=== PATIENT | female | born 1965 | race Hispanic/Latino ===

== ENCOUNTER 2017-09-01 08:02 | Day surgery (SDC) | payer OTHER ==
[2017-09-01] MEDS ORDERED: NA CHLORIDE 0.9% 1,000 ML ONE (08:04)
[2017-09-01] MEDS ORDERED: INSULIN -REGULAR HUMAN 50 UNIT/0.5 ML ML ONE (08:32)
[2017-09-01] MEDS ORDERED: LIDOCAINE 1% MPF 5 ML VIAL ONE (08:44)
[2017-09-01] MEDS ORDERED: PROPOFOL 200 MG/20 ML VIAL IV ONE (08:44)
--- NOTE | 2017-09-01 09:28 | ENDO RPT ---
[address], [address] COLONOSCOPY PROCEDURE REPORT EXAM DATE: 09/01/2017 PATIENT NAME: Madeline Tavares MR #: [id number] BIRTHDATE: 1965 ATTENDING: Vito Levin DR STATUS: outpatient NEW MEDIA STRATEGIST: Rome Yoder and Eloina Maldonado RN INDICATIONS: The patient is a 52 yr old Female here for a colonoscopy due to colon cancer screening PROCEDURE PERFORMED: Colonoscopy with biopsy MEDICATIONS: Per Anesthesia. ESTIMATED BLOOD LOSS: None CONSENT: The patient understands the risks and benefits of the procedure and understands that these risks include, but are not limited to: sedation, allergic reaction, infection, perforation and/or bleeding. Alternative means of evaluation and treatment include, among others: physical exam, x-rays, and/or surgical intervention. The patient elects to proceed with this endoscopic procedure. DESCRIPTION OF PROCEDURE: During intra-op preparation period all mechanical medical equipment was checked for proper function. Hand hygiene and appropriate measures for infection prevention was taken. Procedure, possible complications, alternatives including, but not limited to possibility of bleeding, perforation, tear, infection, sepsis, need for surgery, need for blood transfusion, were explained to the patient. After the risks, benefits and alternatives of the procedure were thoroughly explained, Informed consent was verified, confirmed and timeout was successfully executed by the treatment team. The patient was placed in the left lateral position. A digital rectal exam was performed and revealed internal hemorrhoids. After appropriate level of anesthesia, the scope was passed. The EC-[id number] ([id number]) endoscope was introduced through the anus and advanced to the cecum, which was identified by both the appendix and ileocecal valve. The quality of the prep was fair. The instrument was then slowly withdrawn as the colon was fully examined. Scope withdrawal time was 10 minutes. COLON FINDINGS: Moderate diverticulosis was noted in the right colon and sigmoid colon. No bleeding was noted from the diverticulosis. A small patch of abnormal mucosa was found at the cecum. The mucosa was erythematous and nodular. A biopsy was performed using cold forceps. Small internal hemorrhoids were found. Retroflexed views revealed no abnormalities. The scope was then completely withdrawn from the patient and the procedure terminated. ADVERSE EVENTS: There were no complications. IMPRESSIONS: 1. Moderate diverticulosis was noted in the right colon and sigmoid colon 2. Small abnormal mucosa was found at the cecum; The mucosa was erythematous and nodular; biopsy was performed using cold forceps 3. Small internal hemorrhoids RECOMMENDATIONS: 1. avoid NSAIDS for 2 weeks 2. await biopsy results 3. follow-up: office 2 week(s) 4. low fiber / diverticular diet RECALL: Return in 10 year(s) for Colonoscopy, pending biopsy results. Vito Levin DR eSigned: Vito Levin DR 09/01/2017 9:28 AM cc: CPT CODES: ICD9 CODES: PATIENT NAME: TavaresMadeline gipson MR#: [id number]
[2017-09-01 09:52] VITALS: TEMP 96
[2017-09-01 09:57] VITALS: O2SAT 98
[2017-09-01 10:00] VITALS: BP 107/65
== END 2017-09-01 10:04 | disposition home or self-care (01) ==
LOC: OR 08:02
PROVIDERS: ATTEND Surgery
PROC: 0DBH8ZX Excision of Cecum, Via Natural or Artificial Opening Endoscopic, Diagnostic (ICD-10-PCS; principal; 2017-09-01 09:00)
DX: Z12.11 Encounter for screening for malignant neoplasm of colon (principal); K57.90 Diverticulosis of intestine, part unspecified, without perforation or abscess without bleeding; K64.8 Other hemorrhoids; I10 Essential (primary) hypertension; E03.9 Hypothyroidism, unspecified; E78.2 Mixed hyperlipidemia; M19.91 Primary osteoarthritis, unspecified site
CPT/HCPCS: 82962; 88305; J7030

== ENCOUNTER 2019-01-29 12:08 | Emergency (ER) | payer OTHER ==
[2019-01-29 13:46] LABS: Urine Blood 2+ (NEG); Urine Glucose NEGATIVE (NEG); Urine Protein TRACE (NEG); Urine Specific Gravity 1.015 (1.005-1.030); Urine pH 6.5 (5.0-7.0)
[2019-01-29 13:49] LABS: Urine Bacteria <20 /HPF (<20); Urine Culture Reflex Order REFLEXED; Urine Yeast PRESENT (NONE SEEN)
--- NOTE | 2019-01-29 14:24 | ER ---
Nurse's Notes [facility] Name: Madeline Tavares Age: 53 yrs Sex: Female : 1965 Arrival Date: 01/29/2019 Time: 12:09 Bed 7 Private MD: Chris Paula Diagnosis: Acute tonsillitis, unspecified;Headache;Candidiasis of vulva and vagina Presentation: 01/29 12:44 Presenting complaint: Patient states: subjective fever, abd pain, sore throat, headache sv started yesterday. Transition of care: patient was not received from another setting of care. Onset of symptoms was January 28, 2019. Risk Assessment: Do you want to hurt yourself or someone else? Patient reports no desire to harm self or others. Care prior to arrival: None. 12:44 Method Of Arrival: Ambulatory sv 12:44 Acuity: CARLOS ALBERTO 2 sv 13:50 Initial Sepsis Screen: Does the patient meet any 2 criteria? No. Patient's initial mg2 sepsis screen is negative. Does the patient have a suspected source of infection? No. Patient's initial sepsis screen is negative. 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 - Social history:: Smoking status: unknown. - Ebola Screening: : No symptoms or risks identified at this time. Screenin:49 Abuse screen: Denies threats or abuse. Denies injuries from another. Nutritional mg2 screening: No deficits noted. Tuberculosis screening: No symptoms or risk factors identified. Fall Risk None identified. Assessment: 13:48 General: Appears in no apparent distress. comfortable, Behavior is calm, cooperative. mg2 Pain: Complains of pain in throat. Neuro: Level of Consciousness is awake, alert, obeys commands, Oriented to person, place, time, situation. Cardiovascular: Capillary refill < 3 seconds Patient's skin is warm and dry. Respiratory: Airway is patent Respiratory effort is even, unlabored, Respiratory pattern is regular, symmetrical, Breath sounds are clear bilaterally. in mediastinum, right upper lobe, left upper lobe, right middle lobe, left lower lobe and right lower lobe. GI: No signs and/or symptoms were reported involving the gastrointestinal system. : No signs and/or symptoms were reported regarding the genitourinary system. EENT: Throat is clear Reports sore throaT. Derm: Skin is intact, is healthy with good turgor, Skin is pink, warm \T\ dry. normal. Musculoskeletal: Circulation, motion, and sensation intact. Capillary refill < 3 seconds. 14:46 Reassessment: Patient appears in no apparent distress at this time. Patient and/or mg2 family updated on plan of care and expected duration. Pain level reassessed. Patient is alert, oriented x 3, equal unlabored respirations, skin warm/dry/pink. Vital Signs: 12:46 BP 187 / 119; Pulse 119; Resp 22; Temp 99.2(O); Pulse Ox 97% ; sv 12:51 Weight 75.75 kg; Height 5 ft. 7 in. (170.18 cm); Pain 8/10; sv 13:51 BP 172 / 97; Pulse 98; Resp 18; Pulse Ox 98% on R/A; mg2 14:46 BP 170 / 90; Pulse 90; Resp 18; Temp 99; Pulse Ox 100% on R/A; mg2 12:51 Body Mass Index 26.16 (75.75 kg, 170.18 cm) sv ED Course: 12:09 Patient arrived in ED. am2 12:09 Chris Paula DO is Private Physician. am2 12:45 Triage completed. sv 12:46 Arm band placed on. sv 12:53 Tj Dudley PA is PHCP. cp 12:53 Tj Cheney MD is Attending Physician. cp 13:13 Silvano Blanco, SAUL is Primary Nurse. mg2 13:50 Patient has correct armband on for positive identification. mg2 13:50 Pulse ox on. NIBP on. Door closed. mg2 13:50 No provider procedures requiring assistance completed. Flu and/or RSV swab sent to lab. mg2 Strep swab sent to lab. Patient did not have IV access during this emergency room visit. Administered Medications: 14:28 Drug: Ibuprofen 800 mg Route: PO; mg2 14:47 Follow up: Response: No adverse reaction mg2 14:28 Drug: Tylenol 650 mg Route: PO; mg2 14:47 Follow up: Response: No adverse reaction mg2 Outcome: 14:22 Discharge ordered by MD. cindy 14:47 Discharged to home ambulatory, with family. mg2 14:47 Condition: stable 14:47 Discharge instructions given to patient, family, Instructed on discharge instructions, follow up and referral plans. medication usage, Demonstrated understanding of instructions, follow-up care, medications, Prescriptions given X 3. 14:47 Patient left the ED. mg2 Signatures: Madison Gomez RN RN sv Tj Dudley PA PA cp Moreno, Amanda 2 Silvano Blanco RN RN mg2 Corrections: (The following items were deleted from the chart) 12:47 12:44 Presenting complaint: Patient states: subjective fever, abd pain, sore throat sv started yesterday. sv 12:51 12:44 Acuity: CARLOS ALBERTO 3 sv sv
--- NOTE | 2019-01-29 14:24 | EDPHYS ---
Physician Documentation [facility] Name: Madeline Tavares Age: 53 yrs Sex: Female : 1965 Arrival Date: 01/29/2019 Time: 12:09 Bed 7 Private MD: Chris Paula ED Physician Tj Cheney HPI: 01/29 13:15 This 53 yrs old Female presents to ER via Ambulatory with complaints of Fever, cp Sore Throat, Pain With Urination. 13:15 The patient reports fever, not measured (subjective). cp 13:15 Onset: The symptoms/episode began/occurred today. cp 13:15 Associated signs and symptoms: Pertinent positives: cough, headache, sore throat, lower cp abdomen pain, pain with urination, Pertinent negatives: altered mental status, chest pain, diarrhea, skin rash, vomiting. Severity of symptoms: in the emergency department the symptoms are unchanged despite home interventions. 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 - Social history:: Smoking status: unknown. - Ebola Screening: : No symptoms or risks identified at this time. ROS: 13:25 Constitutional: Negative for fever, poor PO intake. cp 13:25 Eyes: Negative for injury, pain, redness, and discharge. cp 13:25 ENT: Positive for sore throat, Negative for drainage from ear(s), ear pain, difficulty swallowing, difficulty handling secretions. 13:25 Neck: Negative for pain with movement, pain at rest, stiffness. 13:25 Cardiovascular: Negative for chest pain. 13:25 Respiratory: Positive for cough, Negative for shortness of breath, wheezing. 13:25 Abdomen/GI: Positive for abdominal pain, of the suprapubic area, Negative for vomiting, diarrhea, constipation, anorexia. 13:25 Back: Negative for pain at rest, pain with movement. 13:25 : Positive for burning with urination. 13:25 Skin: Negative for rash. 13:25 Neuro: Positive for headache, Negative for altered mental status, weakness. 13:25 All other systems are negative. Exam: 13:30 Constitutional: The patient appears in no acute distress, alert, awake, cp non-diaphoretic, non-toxic, well developed, well nourished, uncomfortable. 13:30 Head/Face: Normocephalic, atraumatic. cp 13:30 Eyes: Periorbital structures: appear normal, Conjunctiva: normal, no exudate, no injection, Sclera: no appreciated abnormality, Lids and lashes: appear normal, bilaterally. 13:30 ENT: External ear(s): are unremarkable, Ear canal(s): are normal, clear, TM's: are normal, no evidence of bulging, no erythema, Nose: is normal, Mouth: Lips: moist, Oral mucosa: moist, Posterior pharynx: Tonsils: with erythema, with exudate, Uvula: midline, swelling, is not appreciated, erythema, that is moderate. 13:30 Neck: ROM/movement: is normal, is supple, no range of motions limitations, no meningismus, no nuchal rigidity, Lymph nodes: lymphadenopathy is appreciated, all areas. 13:30 Chest/axilla: Inspection: normal, Palpation: is normal, no crepitus, no tenderness. 13:30 Cardiovascular: Rate: tachycardic, Rhythm: regular. 13:30 Respiratory: the patient does not display signs of respiratory distress, Respirations: normal, no use of accessory muscles, no retractions, no splinting, no tachypnea, labored breathing, is not present, Breath sounds: are clear throughout, no decreased breath sounds, no stridor, no wheezing. 13:30 Abdomen/GI: Inspection: abdomen appears normal, Bowel sounds: active, all quadrants, Palpation: soft, in all quadrants, mild abdominal tenderness, in the suprapubic area, rebound tenderness, is not appreciated, voluntary guarding, is not appreciated, involuntary guarding, is not appreciated. 13:30 Back: CVA tenderness, is absent. 13:30 Skin: no rash present. 13:30 Neuro: Orientation: to person, place \T\ time. Mentation: is normal, Cerebellar function: is grossly normal, Motor: moves all fours, strength is normal, Sensation: no obvious gross deficits. Vital Signs: 12:46 BP 187 / 119; Pulse 119; Resp 22; Temp 99.2(O); Pulse Ox 97% ; sv 12:51 Weight 75.75 kg; Height 5 ft. 7 in. (170.18 cm); Pain 8/10; sv 13:51 BP 172 / 97; Pulse 98; Resp 18; Pulse Ox 98% on R/A; mg2 14:46 BP 170 / 90; Pulse 90; Resp 18; Temp 99; Pulse Ox 100% on R/A; mg2 12:51 Body Mass Index 26.16 (75.75 kg, 170.18 cm) sv MDM: 12:58 Patient medically screened. [facility] 14:00 Differential diagnosis: URI, pneumonia UTI, influenza, strep throat. 14:21 Data reviewed: vital signs, nurses notes, lab test result(s), and as a result, I will cp discharge patient. 14:21 Counseling: I had a detailed discussion with the patient and/or guardian regarding: the cp historical points, exam findings, and any diagnostic results supporting the discharge/admit diagnosis, lab results, to return to the emergency department if symptoms worsen or persist or if there are any questions or concerns that arise at home. Response to treatment: the patient's symptoms have mildly improved after treatment, and as a result, I will discharge patient. 01/29 13:09 Order name: Urine Microscopic Only; Complete Time: 13:55 01/29 13:56 Interpretation: Normal except: URBC 10-20; YEAST PRESENT; BUD PRESENT. 01/29 13:09 Order name: Strep; Complete Time: 14:34 01/29 13:09 Order name: Influenza Screen (a \T\ B); Complete Time: 14:34 cp 01/29 13:23 Order name: Urine Dipstick--Ancillary (enter results); Complete Time: 13:55 eb 01/29 13:23 Order name: Urine --Ancillary (enter results); Complete Time: 13:55 eb 01/29 13:50 Order name: Urine Culture EDMS 01/29 13:09 Order name: Urine Dipstick-Ancillary (obtain specimen); Complete Time: 13:22 01/29 13:09 Order name: Urine Test (obtain specimen); Complete Time: 13:22 01/29 14:09 Order name: Throat Culture [facility] Administered Medications: 14:28 Drug: Ibuprofen 800 mg Route: PO; mg2 14:47 Follow up: Response: No adverse reaction mg2 14:28 Drug: Tylenol 650 mg Route: PO; mg2 14:47 Follow up: Response: No adverse reaction mg2 Disposition: 01/30 09:06 Co-signature as Attending Physician, Tj Cheney MD I agree with the assessment and [facility] plan of care. Disposition: 01/29/19 14:22 Discharged to Home. Impression: Acute tonsillitis, unspecified, Headache, Candidiasis of vulva and vagina. - Condition is Stable. - Discharge Instructions: General Headache Without Cause, Tonsillitis, Vaginal Yeast Infection, Adult. - Prescriptions for Biaxin 500 mg Oral Tablet - take 1 tablet by ORAL route every 12 hours for 10 days; 20 tablet. Diflucan 150 mg Oral Tablet - take 1 tablet by ORAL route one time for 1 day take second tablet 2 days later if symptoms continue; 2 tablet. Ibuprofen 800 mg Oral Tablet - take 1 tablet by ORAL route every 8 hours As needed take with food; 30 tablet. - Medication Reconciliation Form, Thank You Letter, Antibiotic Education, Prescription Opioid Use form. - Follow up: Private Physician; When: 2 - 3 days; Reason: Recheck today's complaints. - Problem is new. - Symptoms have improved. Signatures: [facility] Madison Gomez RN RN sv Anderson, Corey, MD MD cha Page, Corey, PA PA cp Gardose, Michele, RN RN mg2 Corrections: (The following items were deleted from the chart) 01/29 14:34 14:22 01/29/2019 14:22 Discharged to Home. Impression: Acute tonsillitis, unspecified; cp Headache. Condition is Stable. Forms are Medication Reconciliation Form, Thank You Letter, Antibiotic Education, Prescription Opioid Use. Follow up: Private Physician; When: 2 - 3 days; Reason: Recheck today's complaints. Problem is new. Symptoms have improved. cp 14:47 14:34 01/29/2019 14:22 Discharged to Home. Impression: Acute tonsillitis, unspecified; mg2 Headache; Candidiasis of vulva and vagina. Condition is Stable. Forms are Medication Reconciliation Form, Thank You Letter, Antibiotic Education, Prescription Opioid Use. Follow up: Private Physician; When: 2 - 3 days; Reason: Recheck today's complaints. Problem is new. Symptoms have improved. cp
[2019-01-29] MEDS ORDERED: ACETAMINOPHEN 325 MG TABLET ONE (14:27)
[2019-01-29] MEDS ORDERED: IBUPROFEN 400 MG TAB ONE (14:28)
[2019-01-29 15:15] VITALS: BP 170/90; TEMP 99; O2SAT 100
== END 2019-01-29 14:47 | disposition home or self-care (01) ==
LOC: ER 12:08
DX: J03.90 Acute tonsillitis, unspecified (principal); B37.3 Candidiasis of vulva and vagina; I10 Essential (primary) hypertension; E11.9 Type 2 diabetes mellitus without complications
CPT/HCPCS: 81003; 81015; 81025; 87070; 87081; 87086; 87088; 87804; 99284